=== PATIENT | female | born 1970 | race Caucasian/White ===

== ENCOUNTER 2016-11-18 23:24 | Emergency (ER) | payer MEDICAID ==
[~2016-11-18] VITALS: Ht 152.4 cm; Wt 60.0 kg
[2016-11-18 23:40] VITALS: Ht 152.4 cm; Wt 60.0 kg
[2016-11-19] MEDS ORDERED: KETOROLAC 15 MG INJ IM STA (02:07)
[2016-11-19] MEDS ORDERED: DIAZEPAM 5 MG TAB PO ONE (02:30)
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
[2016-11-19] MEDS ORDERED: NAPR-260 PO (04:48)
[2016-11-19] MEDS ORDERED: DIAZ-90 PO (04:48)
[2016-11-19 04:57] VITALS: BP 127/78; PULSE 78; RESP 20
== END 2016-11-19 04:58 | disposition home or self-care (01) ==
LOC: FTE 23:24
DX: S00.83XA Contusion of other part of head, initial encounter (principal); S40.012A Contusion of left shoulder, initial encounter; S40.022A Contusion of left upper arm, initial encounter; S20.00XA Contusion of breast, unspecified breast, initial encounter; S30.0XXA Contusion of lower back and pelvis, initial encounter; Y08.89XA Assault by other specified means, initial encounter; Z87.891 Personal history of nicotine dependence
CPT/HCPCS: 70110; 72040; 96372; J1885; Z7502; Z7610